=== PATIENT | female | born 1950 | race Caucasian/White ===

== ENCOUNTER 2018-03-30 13:11 | Emergency (ER) | payer OTHER ==
[~2018-03-30] VITALS: Ht 160 cm; Wt 108.9 kg
[2018-03-30] MEDS ORDERED: SYNTHROID100 MC1 PO (13:33)
[2018-03-30] MEDS ORDERED: COUMADIN 5 MG TA5 M1 PO ×2 (13:34→14:13)
[2018-03-30] MEDS ORDERED: COLESTIPOL HCL1 G1 PO (14:08)
[2018-03-30] MEDS ORDERED: ARIMIDEX1 MG PO (14:08)
[2018-03-30] MEDS ORDERED: METFORMIN HCL500 MG PO (14:10)
[2018-03-30] MEDS ORDERED: SYNTHROID137 MC1 PO (14:10)
[2018-03-30] MEDS ORDERED: CLARITIN10 MG PO (14:10)
[2018-03-30] MEDS ORDERED: FUROSEMIDE 20 M20 M1 PO (14:10)
[2018-03-30] MEDS ORDERED: OMEPRAZOLE40 MG PO (14:11)
[2018-03-30] MEDS ORDERED: SINGULAIR 10 MG10 M1 PO (14:11)
[2018-03-30] MEDS ORDERED: LOPRESSOR25 PO (14:11)
[2018-03-30] MEDS ORDERED: TOPROL XL25 MG PO (14:11)
[2018-03-30] MEDS ORDERED: KLOR-CON 1010 MEQ PO (14:12)
[2018-03-30] MEDS ORDERED: PAXIL10 MG PO (14:12)
[2018-03-30] MEDS ORDERED: PROBIOTIC1 EAC1 PO (14:12)
[2018-03-30] MEDS ORDERED: VITAMINC500 PO (14:13)
[2018-03-30] MEDS ORDERED: COUMADIN 1MG TAB1 M1 PO (14:13)
[2018-03-30] MEDS ORDERED: TRIAMCINOLONE A80 G2 TOP (14:13)
[2018-03-30 15:18] VITALS: BP 131/75
== END 2018-03-30 15:22 | disposition home or self-care (01) ==
LOC: M.ERS 13:11
DX: S63.681A Other sprain of right thumb, initial encounter (principal); M79.7 Fibromyalgia; Z88.5 Allergy status to narcotic agent; Z88.8 Allergy status to other drugs, medicaments and biological substances; Z85.3 Personal history of malignant neoplasm of breast; W01.0XXA Fall on same level from slipping, tripping and stumbling without subsequent striking against object, initial encounter; Y93.89 Activity, other specified; Y92.89 Other specified places as the place of occurrence of the external cause; Y99.8 Other external cause status